=== PATIENT | male | born 1990 | race Caucasian/White ===

== ENCOUNTER 2019-03-06 13:07 | Emergency (ER) | payer SELFPAY ==
[~2019-03-06] VITALS: Ht 172.7 cm; Wt 63.5 kg
--- NOTE | 2019-03-06 13:10 | NUR ---
IS AT BEDSIDE FOR MSE. PT AGREES TO BLOOD WORK AND UA.
--- NOTE | 2019-03-06 13:25 | NUR ---
[place] marquez in [facility] - 03/06/19 at 1343 by TIFFANIE Pt to CT via sarah with ACLS guidelines in place.
--- NOTE | 2019-03-06 13:35 | NUR ---
[employer] IN TO SPEAK WITH THE PT. PT TOLD CHAITANYA HE IS NOT SUICIDAL.
[2019-03-06 13:43] LABS: BASOPHILS % (AUTO) 0.3 % (0.0-2.0); EOSINOPHILS # (AUTO) 0.1 K/uL (0.0-0.7); EOSINOPHILS % (AUTO) 1.9 % (0.0-7.0); HEMATOCRIT 43.3 % (36.7-47.1); HEMOGLOBIN 14.2 g/dL (12.5-16.3); LYMPHOCYTES # (AUTO) 1.5 K/uL (20.0-40.0); LYMPHOCYTES % (AUTO) 23.4 % (20.5-51.5); MEAN CORPUSCULAR HEMOGLOBIN 29.7 uug (23.8-33.4); MEAN CORPUSCULAR HGB CONC 33 g/dL (32.5-36.3); MEAN CORPUSCULAR VOLUME 90.6 fL (73.0-96.2); MONOCYTES # (AUTO) 0.8 K/uL (2.0-10.0); NEUTROPHILS # (AUTO) 3.9 K/uL (1.8-8.9); NEUTROPHILS % (AUTO) 62.4 % (38.5-71.5); PLATELET COUNT (AUTO) 251 K/uL (152-348); RED BLOOD CELL COUNT(AUTO) 4.78 MIL/uL (4.06-5.63); WHITE BLOOD COUNT (AUTO) 6.3 K/uL (3.6-10.2)
[2019-03-06 13:51] LABS: CARBON DIOXIDE 27 mmol/L (21-32); CHLORIDE 104 mmol/L (98-107); CREATININE 0.8 mg/dL (0.6-1.3); GLUCOSE 83 mg/dL (74-106); POTASSIUM 3.6 mmol/L (3.5-5.1); UREA NITROGEN, BLOOD 17 mg/dL (7-18)
[2019-03-06 13:55] LABS: ALANINE AMINOTRANSFERASE 18 U/L (16-63); ALKALINE PHOSPHATASE 83 U/L (50-136); ASPARTATE AMINOTRANSFERASE 19 U/L (15-37); BILIRUBIN,DIRECT 0.1 mg/dL (0.0-0.2); BILIRUBIN,TOTAL 0.4 mg/dL (0.2-1.0); TOTAL PROTEIN, SERUM 7.7 g/dL (6.4-8.2)
[2019-03-06 13:56] LABS: ACETAMINOPHEN < 2.0 ug/mL (10-30); ETHANOL < 3 MG/DL (0-0)
--- NOTE | 2019-03-06 16:30 | NUR ---
probation worker in to see pt.
--- NOTE | 2019-03-06 17:19 | NUR ---
4:30pm: SW met with patient, per consultation request. Patient is a 28-year-old male brought in by paramedics from a restaurant due to bizarre behavior. Patient was asleep in his assigned ED bed. SW needed to call his name a few times before patient awoke. Patient was receptive to talking with this SW, but was dosing off during interview. According to medical records, patient's labs showed positive for cocaine. Patient admitted to using cocaine earlier today. Patient states he is homeless, and patient presents with foul body odor. Patient screened for SI, and patient expressed not wanting to hurt himself. Patient states he lives near [facility] and wants to return there. SW asked patient if there was anyone SW could call for him, and patient stated there was not. SW asked patient if he wanted to go to a homeless usp and patient declined. Patient asked for assistance with transportation, and SW provided patient with a 1-day metro card. A meal was provided to the patient. Upon discharge, ED nurses will provide patient with the following resources: 1) clean clothes 2) Homeless resource packet which includes a list of medical clinics and mental health agencies, a list of substance abuse treatment programs, a list of pharmacies, the [facility] homeless resource directory which has a list of places homeless individuals can go throughout the week for hot meals, sack lunches, food pantries, and to take showers, and a list of homeless shelters ([facility], [facility] [place], [facility] [place], [facility]. All above was endorsed to ROSITA Sosa and LONNIE Shah. Dr. Jenkins also informed.
--- NOTE | 2019-03-06 17:20 | NUR ---
[facility] PROVIDED FOR PT.
--- NOTE | 2019-03-06 17:52 | NUR ---
Patient discharged to home in stable conditon. Written and verbal after care instructions given. Patient verbalizes understanding of instructions.PT WALKS I NSTEADY GAIT. PT AXOX4.
[2019-03-06 17:53] VITALS: BP 111/61
== END 2019-03-06 17:53 | disposition home or self-care (01) ==
LOC: ER 13:07 → EDBD 13:07 → ER 17:53
DX: F19.90 Other psychoactive substance use, unspecified, uncomplicated (principal)
CPT/HCPCS: 36415; 80048; 80076; 85025; 99283; G0480 ×2; G0481; A4663